=== PATIENT | female | born 2000 | race Asian ===

== ENCOUNTER 2021-02-28 15:28 | Emergency (ER) | payer OTHER ==
[2021-02-28 16:45] LABS: BUN/CREATININE RATIO 17 (0-10)
[2021-02-28 17:50] LABS: HEMOGLOBIN 11.1 gm/dl (12.3-15.3); RED BLOOD COUNT 4.4 M/UL (4.00-5.10)
[2021-02-28] MEDS ORDERED: REGLAN10 MG PO (17:58)
== END 2021-02-28 18:18 | disposition home or self-care (01) ==
LOC: ER1 15:28
PROVIDERS: Emergency Medicine
DX: O21.9 Vomiting of pregnancy, unspecified (principal); Z3A.09 9 weeks gestation of pregnancy
CPT/HCPCS: 80053; 81001; 83690; 85025; 96374; 99284; J2550; J7030

== ENCOUNTER 2021-09-24 04:28 | Inpatient (IN) | payer OTHER ==
[~2021-09-24] VITALS: Ht 154.9 cm; Wt 59.0 kg
[~2021-09-24 04:28] MED LIST: REGLAN10 MG PO
[2021-09-24 07:25] LABS: HEMOGLOBIN 10.6 gm/dl (12.3-15.3); RED BLOOD COUNT 4.25 M/UL (4.00-5.10); WHITE BLOOD COUNT 10.5 K/UL (4.5-11.0)
[2021-09-24] MEDS ORDERED: PRENATAL TABLE1 EAC1 PO (08:55)
[2021-09-25 05:15] LABS: HEMOGLOBIN 9.2 gm/dl (12.3-15.3)
[2021-09-26] MEDS ORDERED: DOCUSATE SODIU100 MG PO (14:04)
[2021-09-26] MEDS ORDERED: HYDROCODON-ACE1 EAC4 PO (14:04)
[2021-09-26] MEDS ORDERED: IBUPROFEN600 MG PO (14:04)
[2021-09-26] MEDS ORDERED: FERROUS SULFAT325 M2 PO (14:09)
== END 2021-09-26 17:16 | disposition home or self-care (01) | DRG 807 ==
LOC: GENOP 04:28 → OB 05:31
PROVIDERS: Obstetrics & Gynecology; ADMIT Obstetrics & Gynecology
PROC: 0W8NXZZ Division of Female Perineum, External Approach (ICD-10-PCS; principal; 2021-09-24)
PROC: 10D07Z8 Extraction of Products of Conception, Other, Via Natural or Artificial Opening (ICD-10-PCS; 2021-09-24)
DX: O99.354 Diseases of the nervous system complicating childbirth (principal); Z37.0 Single live birth; G43.909 Migraine, unspecified, not intractable, without status migrainosus; R32 Unspecified urinary incontinence; Z20.822 Contact with and (suspected) exposure to COVID-19; O99.892 Other specified diseases and conditions complicating childbirth; Z3A.38 38 weeks gestation of pregnancy
CPT/HCPCS: 36415; 82800; 85014; 85018; 85025; J0595; J2405; J2590; J7120; U0002